=== PATIENT | male | born 1990 | race African-American/Black ===

== ENCOUNTER 2017-03-07 03:20 | Emergency (ER) | payer MEDICAID ==
[~2017-03-07] VITALS: Ht 180.3 cm; Wt 79.4 kg
[2017-03-07 03:20] VITALS: BP_SYST 122
--- NOTE | 2017-03-07 03:20 | NUR ---
Placed in room 07. To gown for exam. Side rails up. Report given to PINEDA Cade.
--- NOTE | 2017-03-07 03:30 | NUR ---
Patient AAO x4, sitting in bed c/o left second digit swelling x 1 day, patient sustained small abrasion 2 days ago, reports trying to "clean cut with alcohol and used a knife to try to drain anything from it". Patient denies pain, states he feels only pressure to the effected finger. No acute distress noted, will continue to monitor.
--- NOTE | 2017-03-07 03:40 | NUR ---
ER at bedside examining patient.
[2017-03-07] MEDS: CLINDAMYCIN HCL 150 MG CAPSULE PO ONE (04:10)
[2017-03-07] MEDS: IBUPROFEN 800 MG TABLET PO ONE (04:11)
[2017-03-07] MEDS: DIPH-TET-PERTUS Vaccine 0.5 ML VIAL (ADACEL) I.M. ONE (04:12)
[2017-03-07 04:20] VITALS: BP_SYST 120
--- NOTE | 2017-03-07 04:20 | NUR ---
Patient given written and verbal discharge instructions and verbalizes understanding. ER MD discussed with patient the results and treatment provided. Patient in stable condition. ID arm band removed. Rx of CLINDAMYCIN, KEFLEX, AND MORTIN given. Patient educated on pain management and to follow up with PMD. Pain Scale 0/10 . Opportunity for questions provided and answered.
== END 2017-03-07 04:20 | disposition home or self-care (01) ==
LOC: SED 03:20
DX: L08.9 Local infection of the skin and subcutaneous tissue, unspecified (principal); Z88.0 Allergy status to penicillin
CPT/HCPCS: 90715; 99284